=== PATIENT | male | born 1965 | race Caucasian/White ===

== ENCOUNTER 2024-03-01 22:24 | Inpatient (IN) | payer MEDICARE, MEDICAID, SELFPAY ==
[2024-03-01 23:17] VITALS: BP 133/83; PULSE 95; RESP 18; TEMP 36.3; O2SAT 95
[2024-03-01 23:18] VITALS: BMI 32.1
--- NOTE | 2024-03-02 01:32 | PC.ADMIT ---
Gualberto was admitted on a 12b from [facility] for schizophrenia. Patient is alert and oriented X's 3, however other then being in a hospital he did not know where he was. He did, however, know he was in a hospital. Gualberto's affect is constricted with fair eye contact, his speech is pressured and tangential. He is noted to be hyper-verbal with flight of ideas. Multiple times during the admission process Gualberto mentioned that he was here because he was arrested and he wanted to know what charges he is being held on. He endorsed being unhappy with his doctor because she sent me here, she got me arrested and sent to the hospital and now I'm here at this hospital but I don't even know where I am . Patient endorses not taking his medications for the past 2 months. They're not court ordered so I don't have to take them . When asked what the precipitant was he stated that he was trying to move out of my brother's house but I wanted to go to the beach, you know to go swimming, but then the steel wheel engraver found me in front of [facility] and they arrested me. The patient arrived to the unit without any belongings. He was oriented to the unit, initial treatment plan initiated, monitor for safety. hospitalist consultation requested via [place] Text at 23:43
[2024-03-02 08:00] VITALS: BP 108/62; PULSE 103; RESP 16; TEMP 36.7; O2SAT 98
--- NOTE | 2024-03-02 08:58 | P.HPPS_ITS ---
HPI Date of Service: 03/02/24 Chief Complaint: Bipolar affective disorder HPI Subjective Notes: Rodriguez Warning Narrative: per crisis eval from [facility], pt was BIBA to their ED after having been sectioned by Dr. Lentz (elsewhere identified by pt as his PCP) for serious safety concerns, hypersexual behavior, and auditory hallucinations. he was described by home health care worker as bizarre, paranoid, irritable, and verbally combative... restless, unable to stay still, unfocused, and disorganized in thought and behavior... pressured speech... responding to internal stimuli. he declined to answer clinician's questions, responding, none of your business. per behavioral health note, pt informed interviewer he had stopped taking his psychiatric medications 2 weeks prior. per behavioral health notes covering the period 02/20 through 03/01 at [facility], pt is noted to have not displayed any concerning or overtly hypersexual behaviors. he is reported to have intermittently complied with antipsychotic medication and was described as having improved in his mental status over the 9 days that he was there. on interview with MD at [facility] [place] [place] behavioral health unit, pt is calm and cooperative. he is hyperverbal, without notable hypersexuality. he repeatedly requests to be discharged. 12b legal status is reviewed, rodriguez warning given. pt states he does not wish to take antipsychotic medication, MD informs him such medication will be offered in any case and he is encouraged to take it. some disorganization, delusional material. does have practical concerns, [place] after [place]. pt is informed he will be held for a period of observation and then discharged home next week if demonstrating safe behavior. Past Psychiatric History: hosps: i don't want to talk about that. per mental health note, informed interviewer he was last hospitalized in the . SA: denies SIB: denies HIB: denies outpt: denies current mental health prescriber PCP - [facility] Evaluation Reviewed: Hospitalist Renuka Pending [facility] Medical History HLD (hyperlipidemia) Diabetes Atrial fibrillation Family History: denies Social History: unknown Substance History: denies utox NEG Trauma History: deferred Diagnostics Vital Signs (24Hr): Vital Signs - 24 hr 03/01/24 23:17 03/02/24 08:00 Temperature 97.4 F 98.1 F Pulse Rate 95 103 H Respiratory Rate 18 16 Blood Pressure 133/83 108/62 Pulse Oximetry 95 98 Oxygen Delivery Method Room Air Room Air BMI result Body Mass Index 32.1 Meds/Allergies Meds Home Medications ?Medication ?Instructions ?Recorded ?Confirmed ?Type benztropine 1 mg tablet 1 mg PO BID 03/02/24 03/02/24 History clonidine HCl 0.1 mg tablet 0.1 mg PO QAM 03/02/24 03/02/24 History fenofibrate nanocrystallized 145 145 mg PO DAILY 03/02/24 03/02/24 History mg tablet haloperidol 5 mg tablet 5 mg PO BEDTIME 03/02/24 03/02/24 History metformin 1,000 mg tablet 1,000 mg PO BID 03/02/24 03/02/24 History metoprolol succinate 25 mg 25 mg PO DAILY 03/02/24 03/02/24 History tablet,extended release 24 hr olanzapine 20 mg tablet 20 mg PO BEDTIME 03/02/24 03/02/24 History rivaroxaban 20 mg tablet (Xarelto) 20 mg PO DAILY 03/02/24 03/02/24 History sitagliptin phosphate 100 mg 100 mg PO DAILY 03/02/24 03/02/24 History tablet (Januvia) Allergies Allergies Allergy/AdvReac Type Severity Reaction Status Date / Time Unable to Assess Allergy Verified 03/02/24 06:45 Mental Status Exam Mental Status Exam Narrative: overweight, unkempt, hospital [facility]. cooperative. speech incr rate, amount. nml loudness, decr latency. thoughts moderately disorganized. paranoid delusions. affect constricted, hyper-intense, min-labile. mood pretty good. denies SI/SIBI/HI/AVH. Assessment & Plan Assessment & Plan (1) Psychosis: Status: Acute Code(s): F29 - Unspecified psychosis not due to a substance or known physiological condition Plan continue previous medications regimen. observe for safety. discharge at expiry of 12b if maintains safety. Patient educated on: medication risk/benefits Reason for continued inpatient stay Substantial Risk for: harm to others Statement Statement: I have reviewed the history and physical and performed a pertinent examination on my patient. No changes have occurred unless specified. If the History and Physical was not performed prior to admission, the Hospitalist's service will be consulted for completing the admission physical. Time Spent With Patient Time: Total time managing care of this patient today __55__ minutes.
--- NOTE | 2024-03-02 09:45 | HO.PM.IMCN ---
History of Present Illness Data of Consult Service Date: 03/02/24 Requesting physician: Killian Dowd Primary Care Provider: Unknown Physician HPI Reason for consult: medical H&P 58 year old male with history of type 2 diabetes, paroxysmal atrial fibrillation, hld, and mood disorder admitted to psychiatry with consult placed to hospitalist service for medical H&P. He comes from [facility] where he boarded since 02/20 due to positive COVID-19 test. He is asymptomatic and completed 10 days isolation. CBC unremarkable. BMP significant for mild hyponatremia of 131. Glucose 211. Does not appear labs were rechecked and patient was refusing medications. He says he does not want to take antipsychotics but is agreeable to taking his januvia, metformin, xarelto, metoprolol, and fenofibrate. He has no complaints at this time and denies substance use. Review of Systems Review of Systems: General: No fevers, malaise, unintentional weight loss HEENT: No blurred vision, diplopia. No sore throat, nasal congestion, rhinorrhea, sinus pain, ear pain Cardiovascular: No chest pain, palpitations, or leg edema Respiratory: No shortness of breath, wheezing, cough GI: No abdominal pain, nausea, vomiting, diarrhea, constipation, melena, hematochezia : No dysuria, hematuria, increased urinary frequency, decreased urinary output MSK: No myalgia, back pain Neuro: No headaches, weakness, paresthesias Skin: No rashes or lesions [facility] Medical History HLD (hyperlipidemia) Diabetes Atrial fibrillation Social History Household Members: Family Housing: Apartment Do you presently have visiting nurse or other home services: Yes (3 days a week) Patient Tobacco Use Status: Former Tobacco user Tobacco use type: Cigarette Smoked in Last 30 Days: No Use of substances other than those prescribed or required for medical reasons: No Currently Displaying Signs/Symptoms of Drug Intoxication Withdrawal: No Any prior treatment program specific to substance use: No Have you been hit, kicked, punched, or otherwise hurt by someone within the past year? If so, by whom?: No Do you feel safe in your current relationship?: No Current Relationship Is there a partner from a previous relationship who is making you feel unsafe now?: No Are you made to feel afraid or neglected: No Advance Directives: No Advance Directives Information Provided: No Recently lost weight without trying: Yes How much weight loss: 2-13 pounds Eating poorly because of decreased appetite: No Nutrition screen score: 3 Nutrition Risks: No Nutritional Risk Poor oral hygiene: No Meds Allergies Allergy/AdvReac Type Severity Reaction Status Date / Time Unable to Assess Allergy Verified 03/02/24 06:45 Active Medications: Current Medications Acetaminophen (Acetaminophen 325 Mg Tablet) 650 mg PO Q6H PRN PRN Reason: Headache/Pain Mild Scale (1-3) Al Hydroxide/Mg Hydroxide (Magnesium Hydrox/Alum Hydrox 30 Ml Oral.Susp) 30 ml PO Q6H PRN PRN Reason: Heartburn/Nausea Hydroxyzine HCl (Hydroxyzine Hcl 25 Mg Tablet) 25 mg PO Q6H PRN PRN Reason: Anxiety Magnesium Hydroxide (Milk Of Magnesia 30 Ml Oral.Susp) 30 ml PO DAILY PRN PRN Reason: Constipation Nicotine Polacrilex (Nicotine Polacrilex 2 Mg Gum) 4 mg BUCCAL Q2H PRN PRN Reason: Nicotine Cravings Trazodone HCl (Trazodone Hcl 50 Mg Tablet) 50 mg PO BEDTIME MRX1 PRN PRN Reason: Insomnia Home Medications ?Medication ?Instructions ?Recorded ?Confirmed ?Last Taken ?Type benztropine 1 mg tablet 1 mg PO BID 03/02/24 03/02/24 Unknown History clonidine HCl 0.1 mg tablet 0.1 mg PO QAM 03/02/24 03/02/24 Unknown History fenofibrate nanocrystallized 145 145 mg PO DAILY 03/02/24 03/02/24 Unknown History mg tablet haloperidol 5 mg tablet 5 mg PO BEDTIME 03/02/24 03/02/24 Unknown History metformin 1,000 mg tablet 1,000 mg PO BID 03/02/24 03/02/24 Unknown History metoprolol succinate 25 mg 25 mg PO DAILY 03/02/24 03/02/24 Unknown History tablet,extended release 24 hr olanzapine 20 mg tablet 20 mg PO BEDTIME 03/02/24 03/02/24 Unknown History rivaroxaban 20 mg tablet (Xarelto) 20 mg PO DAILY 03/02/24 03/02/24 Unknown History sitagliptin phosphate 100 mg 100 mg PO DAILY 03/02/24 03/02/24 Unknown History tablet (Januvia) Physical Exam Vital Signs and Narrative: Vital Signs: Last Vital Signs Temp 98.1 F 03/02/24 08:00 Pulse 103 H 03/02/24 08:00 Resp 16 03/02/24 08:00 BP 108/62 03/02/24 08:00 Pulse Ox 98 03/02/24 08:00 O2 Del Method Room Air 03/02/24 08:00 BMI result Body Mass Index 32.1 Constitutional - Awake and Alert, No apparent distress Eyes - PERRLA, EOMI Cardiovascular - S1S2, RRR, No edema Respiratory - Normal lung expansion, Normal respiratory effort, No respiratory distress, CTA bilaterally Gastrointestinal - NT / ND; +BS; No rebound or guarding Extremities - no calf tenderness bilaterally, no swelling Musculoskeletal - Normal inspection, normal ROM Skin - Warm/Dry Neurological - Alert & oriented x3, CN II-XII in tact, 5/5 strength BUE and BLE Psychological - Appropriate affect Assessment and Plan (1) Routine medical exam: Status: Acute Plan 58 year old male with history of type 2 diabetes, paroxysmal atrial fibrillation, hld, and mood disorder admitted to psychiatry with consult placed to hospitalist service for medical H&P. #Mood disorder -plan per psychiatry #Paroxysmal atiral fibrillation -continue xarelto for ac -continue metoprolol for rate control #Type 2 diabetes -check poc daily, encourage diabetic diet/healthy snacking -continue metformin and januvia #Hyponatremia -recheck bmp. If remains low, fluid restrictions to 1.5L #HLD -fenofibrate Thank you for allowing me to participate in this consult. Signing off at this time. Please do not hesitate to call for further questions or for any acute medical issues
[2024-03-02 12:59] VITALS: BP 141/87; PULSE 100; RESP 16; O2SAT 96
[2024-03-02 13:46] VITALS: BP 141/87
[2024-03-02] MEDS: cloNIDine HCL 0.1 MG TABLET PO (13:46)
[2024-03-02] MEDS: metFORMIN HCl 1,000 MG TABLET 1000 MG PO ×2 (13:46→20:53)
[2024-03-02 13:47] VITALS: BP 141/87; PULSE 100
[2024-03-02] MEDS: Metoprolol Succinate ER 25 MG TAB.ER.24H PO (13:47)
[2024-03-02] MEDS: SITagliptin Phosphate 100 MG TABLET PO (13:47)
[2024-03-02] MEDS: Fenofibrate 160 MG TABLET PO (13:47)
[2024-03-02] MEDS: Rivaroxaban 20 MG TABLET PO (17:03)
[2024-03-02 20:00] VITALS: BP 135/68; PULSE 87; RESP 18; TEMP 36.1; O2SAT 98
[2024-03-03 07:33] VITALS: BP 148/70; PULSE 87; RESP 20; TEMP 36.7; O2SAT 100
[2024-03-03 08:42] VITALS: BP 148/70; PULSE 87
[2024-03-03] MEDS: Metoprolol Succinate ER 25 MG TAB.ER.24H PO (08:42)
[2024-03-03] MEDS: Fenofibrate 160 MG TABLET PO (08:42)
[2024-03-03 08:43] VITALS: BP 148/70
[2024-03-03] MEDS: cloNIDine HCL 0.1 MG TABLET PO (08:43)
[2024-03-03] MEDS: metFORMIN HCl 1,000 MG TABLET 1000 MG PO ×2 (08:43→21:08)
[2024-03-03] MEDS: SITagliptin Phosphate 100 MG TABLET PO (08:43)
--- NOTE | 2024-03-03 11:14 | P.PNPSI_ITS ---
Subjective Subjective Date of Service: 03/03/24 Reason For Visit: Bipolar affective disorder Subjective Notes: Rodriguez Warning and Section 12B ( expires Tuesday03/06/2024) Interim History: met with patient. Discussed with Nursing. Has been withdrawn and guarded. F ocused on discharge. With advertising copywriter continues to emphasize being year for discharge. Denies having any depression, suicidal thoughts, agitation, psychosis or homicidal ideas. Discussed Section 12 and Rodriguez warning. Reports feeling frustrated at being in the hospital, having been at [facility] ED for 10 days prior to this waiting for a bed. Outside of this in the milieu, watching television and eating meals. Mental Status Exam Mental Status Exam Narrative: overweight, fair self care [facility]. cooperative. speech incr rate, amount. nml loudness, decr latency. Overall organized, no overt delusions today. affect constricted, hyper-intense, min-labile. mood good denies SI/S IBI/HI/AVH. Diagnostics Vital Signs (24Hr): Vital Signs - 24 hr 03/02/24 12:59 03/02/24 13:46 03/02/24 13:47 Temperature Pulse Rate 100 100 Respiratory Rate 16 Blood Pressure 141/87 H 141/87 H 141/87 H Pulse Oximetry 96 Oxygen Delivery Method 03/02/24 20:00 03/03/24 07:33 03/03/24 08:42 Temperature 97 F 98.0 F Pulse Rate 87 87 87 Respiratory Rate 18 20 Blood Pressure 135/68 148/70 H 148/70 H Pulse Oximetry 98 100 Oxygen Delivery Method Room Air Room Air 03/03/24 08:43 Temperature Pulse Rate Respiratory Rate Blood Pressure 148/70 H Pulse Oximetry Oxygen Delivery Method BMI result Body Mass Index 32.1 Medications Medications Current Medications Acetaminophen (Acetaminophen 325 Mg Tablet) 650 mg PO Q6H PRN PRN Reason: Headache/Pain Mild Scale (1-3) Al Hydroxide/Mg Hydroxide (Magnesium Hydrox/Alum Hydrox 30 Ml Oral.Susp) 30 ml PO Q6H PRN PRN Reason: Heartburn/Nausea Clonidine HCl (Clonidine Hcl 0.1 Mg Tablet) 0.1 mg PO DAILY YAHAIRA; Protocol Last Admin: 03/03/24 08:43 Dose: 0.1 mg Fenofibrate (Fenofibrate 160 Mg Tablet) 160 mg PO DAILY YAHAIRA Last Admin: 03/03/24 08:42 Dose: 160 mg Hydroxyzine HCl (Hydroxyzine Hcl 25 Mg Tablet) 25 mg PO Q6H PRN PRN Reason: Anxiety Magnesium Hydroxide (Milk Of Magnesia 30 Ml Oral.Susp) 30 ml PO DAILY PRN PRN Reason: Constipation Metformin HCl (Metformin Hcl 1,000 Mg Tablet) 1,000 mg PO BID [facility] Last Admin: 03/03/24 08:43 Dose: 1,000 mg Metoprolol Succinate (Metoprolol Succinate Er 25 Mg Tab.Er.24h) 25 mg PO DAILY [facility]; Protocol Last Admin: 03/03/24 08:42 Dose: 25 mg Nicotine Polacrilex (Nicotine Polacrilex 2 Mg Gum) 4 mg BUCCAL Q2H PRN PRN Reason: Nicotine Cravings Olanzapine (Olanzapine 10 Mg Tablet) 20 mg PO BEDTIME [facility] Last Admin: 03/02/24 20:55 Dose: Not Given Rivaroxaban (Rivaroxaban 20 Mg Tablet) 20 mg PO DAILY@1700 [facility] Last Admin: 03/02/24 17:03 Dose: 20 mg Sitagliptin Phosphate (Sitagliptin Phosphate 100 Mg Tablet) 100 mg PO DAILY [facility] Last Admin: 03/03/24 08:43 Dose: 100 mg Trazodone HCl (Trazodone Hcl 50 Mg Tablet) 50 mg PO BEDTIME MRX1 PRN PRN Reason: Insomnia Allergies Allergies Allergy/AdvReac Type Severity Reaction Status Date / Time Unable to Assess Allergy Verified 03/02/24 06:45 Assessment & Plan Assessment & Plan (1) Psychosis: Status: Acute Code(s): F29 - Unspecified psychosis not due to a substance or known physiological condition Plan continue previous medications regimen. observe for safety. discharge at expiry of 12b if maintains safety. 03/03/2024: No changes Reason for continued inpatient stay Substantial Risk for: inability to function and rapid decompensation Time Spent With Patient Time: Total time managing care of this patient today ____ minutes.
[2024-03-03] MEDS: Rivaroxaban 20 MG TABLET PO (16:07)
[2024-03-03 20:00] VITALS: BP 105/69; PULSE 99; RESP 18; TEMP 36.6; O2SAT 99
[2024-03-04 07:50] VITALS: BP 140/88; PULSE 59; RESP 14; TEMP 36.4; O2SAT 98
[2024-03-04] MEDS: metFORMIN HCl 1,000 MG TABLET 1000 MG PO ×2 (08:23→21:07)
[2024-03-04] MEDS: Fenofibrate 160 MG TABLET PO (08:23)
[2024-03-04] MEDS: SITagliptin Phosphate 100 MG TABLET PO (08:24)
[2024-03-04] MEDS: cloNIDine HCL 0.1 MG TABLET PO (08:24)
[2024-03-04] MEDS: Metoprolol Succinate ER 25 MG TAB.ER.24H PO (08:24)
[2024-03-04 08:30] LABS: Creatinine Clr Calc Pharmacy 89.6; Estimated Glomerular Filt Rate > 60
--- NOTE | 2024-03-04 11:13 | HO.PSYCHPN ---
Subjective Subjective Date of Service: 03/04/24 Reason For Visit: Bipolar affective disorder Interim History: met with patient. Discussed with Nursing. Less guarded. Less withdrawn. Continues to emphasize wanting discharge. Denies having any depression, suicidal thoughts, agitation, psychosis or homicidal ideas. Still frustrated at being in the hospital, But not agitated. Outside of this in the milieu, watching television and eating meals. Medication Compliance: Yes Side effects from medications: No Attending Groups: Intermittent Review of Systems Acute medical concerns: No Review of Systems Review of Systems Yes all other systems are reviewed and are negative Mental Status Exam Mental Status Exam Narrative: overweight, fair self care [facility]. cooperative. speech incr rate, amount. nml loudness, decr latency. Overall organized, no overt delusions. affect constricted, hyper-intense, min-labile. mood good denies SI/SIBI/HI/AVH. Diagnostics Vital Signs (24Hr): Vital Signs - 24 hr 03/03/24 20:00 03/04/24 07:50 Temperature 97.8 F 97.6 F Pulse Rate 99 59 Respiratory Rate 18 14 Blood Pressure 105/69 140/88 H Pulse Oximetry 99 98 Oxygen Delivery Method Room Air Room Air BMI result Body Mass Index 32.1 Labs 03/04/24 14:25 03/04/24 07:59 Labs: Laboratory Results - last 48 hr 03/04/24 07:59 Creatinine 1.06 Estim Creat Clear Calc 89.6 Estimated GFR > 60 Medications Medications Current Medications Acetaminophen (Acetaminophen 325 Mg Tablet) 650 mg PO Q6H PRN PRN Reason: Headache/Pain Mild Scale (1-3) Al Hydroxide/Mg Hydroxide (Magnesium Hydrox/Alum Hydrox 30 Ml Oral.Susp) 30 ml PO Q6H PRN PRN Reason: Heartburn/Nausea Clonidine HCl (Clonidine Hcl 0.1 Mg Tablet) 0.1 mg PO DAILY [facility]; Protocol Last Admin: 03/04/24 08:24 Dose: 0.1 mg Fenofibrate (Fenofibrate 160 Mg Tablet) 160 mg PO DAILY [facility] Last Admin: 03/04/24 08:23 Dose: 160 mg Hydroxyzine HCl (Hydroxyzine Hcl 25 Mg Tablet) 25 mg PO Q6H PRN PRN Reason: Anxiety Magnesium Hydroxide (Milk Of Magnesia 30 Ml Oral.Susp) 30 ml PO DAILY PRN PRN Reason: Constipation Metformin HCl (Metformin Hcl 1,000 Mg Tablet) 1,000 mg PO BID [facility] Last Admin: 03/04/24 08:23 Dose: 1,000 mg Metoprolol Succinate (Metoprolol Succinate Er 25 Mg Tab.Er.24h) 25 mg PO DAILY [facility]; Protocol Last Admin: 03/04/24 08:24 Dose: 25 mg Nicotine Polacrilex (Nicotine Polacrilex 2 Mg Gum) 4 mg BUCCAL Q2H PRN PRN Reason: Nicotine Cravings Olanzapine (Olanzapine 10 Mg Tablet) 20 mg PO BEDTIME [facility] Last Admin: 03/03/24 22:04 Dose: Not Given Rivaroxaban (Rivaroxaban 20 Mg Tablet) 20 mg PO DAILY@1700 [facility] Last Admin: 03/03/24 16:07 Dose: 20 mg Sitagliptin Phosphate (Sitagliptin Phosphate 100 Mg Tablet) 100 mg PO DAILY [facility] Last Admin: 03/04/24 08:24 Dose: 100 mg Trazodone HCl (Trazodone Hcl 50 Mg Tablet) 50 mg PO BEDTIME MRX1 PRN PRN Reason: Insomnia Allergies Allergies Allergy/AdvReac Type Severity Reaction Status Date / Time Unable to Assess Allergy Verified 03/02/24 06:45 Assessment & Plan Assessment & Plan (1) Psychosis: Status: Acute Code(s): F29 - Unspecified psychosis not due to a substance or known physiological condition Plan continue previous medications regimen. observe for safety. discharge at expiry of 12b if maintains safety. 03/03/2024: No changes 03/04/2024: No changes Reason for continued inpatient stay Substantial Risk for: rapid decompensation Time Spent With Patient Time: Total time managing care of this patient today ____ minutes.
[2024-03-04 14:17] LABS: Anion Gap 16 (12-20)
[2024-03-04 14:21] LABS: Alanine Aminotransferase 27 U/L (0-40); Alkaline Phosphatase 59 U/L (39-117); Aspartate Amino Transferase 18 U/L (5-37); Bilirubin Total 0.9 mg/dL (0.0-1.0); Blood Urea Nitrogen 11 mg/dL (9-16); Calcium 9.8 mg/dL (8.4-10.2); Carbon Dioxide 24 mmol/L (22-29); Chloride 102 mmol/L (96-108); Glucose Random 223 mg/dL (60-115); Potassium 4.5 mmol/L (3.3-5.1); Sodium 137 mmol/L (135-145)
[2024-03-04 14:39] LABS: MANUAL DIFF FLAG NO
[2024-03-04 14:41] LABS: Basophils Percent Auto 0.3 % (0-2); Eosinophils Absolute Auto 0.1 X10*3/uL (0.0-0.4); Hematocrit 46.4 % (42.0-52.0); Hemoglobin 16.2 g/dl (14.0-18.0); Imm Gran Pct Auto 0.8 % (0.0-0.4); Lymphocytes Absolute Auto 2.4 X10*3/uL (1.2-4.9); Lymphocytes Percent Auto 20.5 % (20-40); Mean Corpuscular HGB Conc 34.9 g/dl (31.0-36.0); Mean Corpuscular Hemoglobin 28.5 pg (27.0-33.0); Mean Corpuscular Volume 81.7 fL (80.0-98.0); Mean Platelet Volume 9.4 fL (9.4-12.4); Monocytes Absolute Auto 1.1 X10*3/uL (0.1-1.2); Monocytes Percent Auto 9.3 % (2-11); Neutrophils Absolute Auto 8.1 x10*3/uL (2.0-8.3); Neutrophils Percent Auto 68.1 % (45-73); Platelet Count 269 X10*3/uL (160-400); Red Blood Count 5.68 X10*6/uL (4.60-5.80); Red Cell Distribution Width 12.6 % (11.0-16.0); White Blood Count 11.9 X10*3/uL (4.8-10.8)
[2024-03-04] MEDS: Rivaroxaban 20 MG TABLET PO (17:03)
[2024-03-04 20:00] VITALS: BP 136/90; PULSE 96; RESP 18; TEMP 36.6; O2SAT 98
[2024-03-05 07:34] VITALS: BP 105/59; PULSE 94; RESP 16; TEMP 36.4
[2024-03-05 08:31] VITALS: BP 129/81; PULSE 90; RESP 16; O2SAT 96
[2024-03-05 08:32] VITALS: BP 129/81; PULSE 90
[2024-03-05] MEDS: SITagliptin Phosphate 100 MG TABLET PO (08:32)
[2024-03-05] MEDS: cloNIDine HCL 0.1 MG TABLET PO (08:32)
[2024-03-05] MEDS: Fenofibrate 160 MG TABLET PO (08:32)
[2024-03-05] MEDS: Metoprolol Succinate ER 25 MG TAB.ER.24H PO (08:32)
[2024-03-05] MEDS: metFORMIN HCl 1,000 MG TABLET 1000 MG PO ×2 (08:32→21:28)
--- NOTE | 2024-03-05 11:03 | PM.PSYDC ---
DS: Providers Provider Date of Service: 03/06/24 Date of admission: 03/01/24 22:24 Primary care physician: Unknown Physician Consults: 03/01/24 22:57 Consult to Hospitalist Routine Comment: Consulting Provider: Hospitalist Reason For Exam: OSH admission DS: Diagnosis Discharge Diagnosis (1) Psychosis: Status: Acute DS: Medications Discharge Medications Home Medications: Home Medications ?Medication ?Instructions ?Recorded ?Confirmed benztropine 1 mg tablet 1 mg PO BID 03/02/24 03/02/24 clonidine HCl 0.1 mg tablet 0.1 mg PO QAM 03/02/24 03/02/24 fenofibrate nanocrystallized 145 145 mg PO DAILY 03/02/24 03/02/24 mg tablet haloperidol 5 mg tablet 5 mg PO BEDTIME 03/02/24 03/02/24 metformin 1,000 mg tablet 1,000 mg PO BID 03/02/24 03/02/24 metoprolol succinate 25 mg 25 mg PO DAILY 03/02/24 03/02/24 tablet,extended release 24 hr olanzapine 20 mg tablet 20 mg PO BEDTIME 03/02/24 03/02/24 rivaroxaban 20 mg tablet (Xarelto) 20 mg PO DAILY 03/02/24 03/02/24 sitagliptin phosphate 100 mg 100 mg PO DAILY 03/02/24 03/02/24 tablet (Januvia) Mental Status Exam Mental Status Exam Narrative: overweight, fair self care [facility]. cooperative. speech incr rate, amount. nml loudness, decr latency. Overall organized, no overt delusions. affect constricted, hyper-intense, min-labile. mood fine. denies SI/SIBI/HI/AVH. Data Data Completed and Pending Completed studies during hospitalization [Text1]: 03/04/24 03/04/24 07:59 14:25 WBC 11.9 H RBC 5.68 Hgb 16.2 Hct 46.4 MCV 81.7 MCH 28.5 MCHC 34.9 RDW 12.6 Plt Count 269 MPV 9.4 Immature Gran % (Auto) 0.8 H Neut % (Auto) 68.1 Lymph % (Auto) 20.5 [place] % (Auto) 9.3 Eos % (Auto) 1.0 Baso % (Auto) 0.3 Lymph # (Auto) 2.4 [place] # (Auto) 1.1 Eos # (Auto) 0.1 Baso # (Auto) 0.0 Abs Immat Gran (auto) 0.10 H Absolute Neuts (auto) 8.1 Absolute Nucleated RBC 0.000 Nucleated RBC % (auto) 0.0 Sodium 137 Potassium 4.5 Chloride 102 Carbon Dioxide 24 Anion Gap 16 BUN 11 Creatinine 1.06 Estim Creat Clear Calc 89.6 Estimated GFR > 60 Random Glucose 223 H Calcium 9.8 Total Bilirubin 0.9 AST 18 ALT 27 Alkaline Phosphatase 59 Total Protein 7.0 Albumin 4.0 DS: Summary Hospital Course Hospital Course: per 03/02 admission note: per crisis eval from [facility], pt was BIBA to their ED after having been sectioned by Dr. Lentz (elsewhere identified by pt as his PCP) for serious safety concerns, hypersexual behavior, and auditory hallucinations. he was described by honey liquefier as bizarre, paranoid, irritable, and verbally combative... restless, unable to stay still, unfocused, and disorganized in thought and behavior... pressured speech... responding to internal stimuli. he declined to answer clinician's questions, responding, none of your business. per behavioral health note, pt informed interviewer he had stopped taking his psychiatric medications 2 weeks prior. per behavioral health notes covering the period 02/20 through 03/01 at [facility], pt is noted to have not displayed any concerning or overtly hypersexual behaviors. he is reported to have intermittently complied with antipsychotic medication and was described as having improved in his mental status over the 9 days that he was there. on interview with MD at [facility] behavioral health [facility], pt is calm and cooperative. he is hyperverbal, without notable hypersexuality. he repeatedly requests to be discharged. 12b legal status is reviewed, gross warning given. pt states he does not wish to take antipsychotic medication, MD informs him such medication will be offered in any case and he is encouraged to take it. some disorganization, delusional material. does have practical concerns, [place]. pt is informed he will be held for a period of observation and then discharged home next week if demonstrating safe behavior. Past Psychiatric History: hosps: i don't want to talk about that. per mental health note, informed interviewer he was last hospitalized in the . SA: denies SIB: denies HIB: denies outpt: denies current mental health prescriber BI Lentz Medical Evaluation Reviewed: Hospitalist Renuka Pending [facility] Medical History HLD (hyperlipidemia) Diabetes Atrial fibrillation Family History: denies Social History: unknown Substance History: denies utox NEG Trauma History: deferred Precis: 03/02: continue previous medications regimen. observe for safety. discharge at expiry of 12b if maintains safety. 03/03/2024: No changes 03/04/2024: No changes 03/05: planning for discharge tomorrow. refusing meds. behaviors stable, no concerning or unsafe behaviors exhibited. notably, no hypersexuality. 3-day expires tomorrow. 03/06: signed CV, wants to DC tomorrow to allow him time to coordinate his discharge with family in [facility].. plan agreed to. 03/07: stable, no concerning behaviors. discharged as per plan. Time Spent with Patient Time attestation: Total time managing care of this patient today _35___ minutes. Discharge Plan Discharge Anticipated Discharge Date/Time: 03/06/24 10:58 Patient Disposition: Home, Self-Care Discharge Diagnosis: Psychotic Disorder NOS Referrals: [facility] [Provider Group] - 1 Week (walk in hours Tuesday through Tuesday 830-4) Discharge Medications: Continued clonidine HCl 0.1 mg tablet 0.1 mg PO QAM haloperidol 5 mg tablet 5 mg PO BEDTIME metformin 1,000 mg tablet 1,000 mg PO BID benztropine 1 mg tablet 1 mg PO BID fenofibrate nanocrystallized 145 mg tablet 145 mg PO DAILY Januvia 100 mg tablet 100 mg PO DAILY metoprolol succinate 25 mg tablet extended release 24 hr 25 mg PO DAILY olanzapine 20 mg tablet 20 mg PO BEDTIME Xarelto 20 mg tablet 20 mg PO DAILY Discharge Orders: Discharge Order (Routine); Ordered 03/07/24 Ordered By: Killian Dowd Diet: Advance to usual diet Activity on Discharge: As tolerated Stand Alone Forms: Patient Portal Discharge page, Community Support Print Language: Latvian Care Plan Goals: remain safe and stable in the outpatient treatment setting Health Concerns: none Plan of Treatment: take medications as prescribed, attend appointments as scheduled Assessment: not at imminent risk of harm to self or others Discharge Date/Time: 03/07/24 10:15
[2024-03-05] MEDS: Rivaroxaban 20 MG TABLET PO (16:46)
[2024-03-05 20:00] VITALS: BP 128/69; PULSE 101; RESP 16; TEMP 36.4; O2SAT 97
[2024-03-06 07:41] VITALS: BP 139/79; PULSE 97; RESP 16; TEMP 36.1; O2SAT 96
[2024-03-06 08:15] VITALS: BP 139/79; PULSE 97
[2024-03-06] MEDS: metFORMIN HCl 1,000 MG TABLET 1000 MG PO ×2 (08:15→21:29)
[2024-03-06] MEDS: SITagliptin Phosphate 100 MG TABLET PO (08:15)
[2024-03-06] MEDS: Metoprolol Succinate ER 25 MG TAB.ER.24H PO (08:15)
[2024-03-06] MEDS: cloNIDine HCL 0.1 MG TABLET PO (08:15)
[2024-03-06] MEDS: Fenofibrate 160 MG TABLET PO (08:16)
--- NOTE | 2024-03-06 15:15 | P.PNPSI_ITS ---
Subjective Subjective Date of Service: 03/05/24 Reason For Visit: Bipolar affective disorder Interim History: calm cooperative. interested in DC upon expiry of 3-day notice. meds reviewed, reconciled. none prescribed as there were no medication changes. per staff, no notable behaviors. Mental Status Exam Mental Status Exam Narrative: overweight, fair self care [facility]. cooperative. speech incr rate, amount. nml loudness, decr latency. Overall organized, no overt delusions. affect constricted, hyper-intense, min-labile. mood fine. denies SI/SIBI/HI/AVH. Diagnostics Vital Signs (24Hr): Vital Signs - 24 hr 03/05/24 20:00 03/06/24 07:41 03/06/24 08:15 Temperature 97.5 F 96.9 F Pulse Rate 101 H 97 Respiratory Rate 16 16 Blood Pressure 128/69 139/79 139/79 Pulse Oximetry 97 96 Oxygen Delivery Method Room Air Room Air 03/06/24 08:15 Temperature Pulse Rate 97 Respiratory Rate Blood Pressure 139/79 Pulse Oximetry Oxygen Delivery Method BMI result Body Mass Index 32.1 Labs 03/04/24 14:25 03/04/24 07:59 Medications Medications Current Medications Acetaminophen (Acetaminophen 325 Mg Tablet) 650 mg PO Q6H PRN PRN Reason: Headache/Pain Mild Scale (1-3) Al Hydroxide/Mg Hydroxide (Magnesium Hydrox/Alum Hydrox 30 Ml Oral.Susp) 30 ml PO Q6H PRN PRN Reason: Heartburn/Nausea Clonidine HCl (Clonidine Hcl 0.1 Mg Tablet) 0.1 mg PO DAILY [facility]; Protocol Last Admin: 03/06/24 08:15 Dose: 0.1 mg Fenofibrate (Fenofibrate 160 Mg Tablet) 160 mg PO DAILY [facility] Last Admin: 03/06/24 08:16 Dose: 160 mg Hydroxyzine HCl (Hydroxyzine Hcl 25 Mg Tablet) 25 mg PO Q6H PRN PRN Reason: Anxiety Magnesium Hydroxide (Milk Of Magnesia 30 Ml Oral.Susp) 30 ml PO DAILY PRN PRN Reason: Constipation Metformin HCl (Metformin Hcl 1,000 Mg Tablet) 1,000 mg PO BID [facility] Last Admin: 03/06/24 08:15 Dose: 1,000 mg Metoprolol Succinate (Metoprolol Succinate Er 25 Mg Tab.Er.24h) 25 mg PO DAILY [facility]; Protocol Last Admin: 03/06/24 08:15 Dose: 25 mg Nicotine Polacrilex (Nicotine Polacrilex 2 Mg Gum) 4 mg BUCCAL Q2H PRN PRN Reason: Nicotine Cravings Olanzapine (Olanzapine 10 Mg Tablet) 20 mg PO BEDTIME [facility] Last Admin: 03/05/24 21:28 Dose: Not Given Rivaroxaban (Rivaroxaban 20 Mg Tablet) 20 mg PO DAILY@1700 [facility] Last Admin: 03/05/24 16:46 Dose: 20 mg Sitagliptin Phosphate (Sitagliptin Phosphate 100 Mg Tablet) 100 mg PO DAILY [facility] Last Admin: 03/06/24 08:15 Dose: 100 mg Trazodone HCl (Trazodone Hcl 50 Mg Tablet) 50 mg PO BEDTIME MRX1 PRN PRN Reason: Insomnia Allergies Allergies Allergy/AdvReac Type Severity Reaction Status Date / Time Unable to Assess Allergy Verified 03/02/24 06:45 Assessment & Plan Assessment & Plan (1) Psychosis: Status: Acute Code(s): F29 - Unspecified psychosis not due to a substance or known physiological condition Plan continue previous medications regimen. observe for safety. discharge at expiry of 12b if maintains safety. 03/03/2024: No changes 03/04/2024: No changes 03/05: planning for discharge tomorrow. refusing meds. 3-day expires tomorrow. Reason for continued inpatient stay Substantial Risk for: inability to function Time Spent With Patient Time: Total time managing care of this patient today __35__ minutes.
[2024-03-06] MEDS: Rivaroxaban 20 MG TABLET PO (17:07)
[2024-03-06 20:00] VITALS: BP 126/72; PULSE 98; RESP 18; TEMP 36.3; O2SAT 97
[2024-03-07 07:52] VITALS: BP 117/76; PULSE 100; RESP 16; TEMP 36.3; O2SAT 98
[2024-03-07 09:33] VITALS: BP 117/76
[2024-03-07] MEDS: SITagliptin Phosphate 100 MG TABLET PO (09:33)
[2024-03-07] MEDS: cloNIDine HCL 0.1 MG TABLET PO (09:33)
[2024-03-07 09:34] VITALS: BP 117/76; PULSE 100
[2024-03-07] MEDS: Metoprolol Succinate ER 25 MG TAB.ER.24H PO (09:34)
[2024-03-07] MEDS: metFORMIN HCl 1,000 MG TABLET 1000 MG PO (09:34)
[2024-03-07] MEDS: Fenofibrate 160 MG TABLET PO (09:34)
== END 2024-03-07 10:15 | disposition home or self-care (01) | DRG 885 ==
PROVIDERS: Psychiatry & Neurology Psychiatry; Admitting Provider Psychiatry & Neurology Psychiatry; Visit Provider Psychiatry & Neurology Psychiatry
DX: F29 Unspecified psychosis not due to a substance or known physiological condition (principal); E87.1 Hypo-osmolality and hyponatremia; E11.9 Type 2 diabetes mellitus without complications; E78.5 Hyperlipidemia, unspecified; I48.0 Paroxysmal atrial fibrillation; Z79.01 Long term (current) use of anticoagulants; Z79.899 Other long term (current) drug therapy
CPT/HCPCS: 36415; 80053; 82565; 85025

== ENCOUNTER → 2024-03-01 22:24 | Outpatient (BNV) | payer MEDICARE, MEDICAID, SELFPAY | PROVIDERS: Admitting Provider Psychiatry & Neurology Psychiatry; Visit Provider Psychiatry & Neurology Psychiatry | DX: F29 Unspecified psychosis not due to a substance or known physiological condition (principal) | CPT/HCPCS: 90792; 99231; 99232; 99239 ==

== ENCOUNTER → 2024-03-01 22:24 | Outpatient (BNV) | payer MEDICARE, MEDICAID, SELFPAY | PROVIDERS: Admitting Provider Psychiatry & Neurology Psychiatry; Visit Provider Physician Assistant | DX: Z02.2 Encounter for examination for admission to residential institution (principal) | CPT/HCPCS: 99429 ==